=== PATIENT | male | born 1995 | race Caucasian/White ===

== ENCOUNTER 2021-03-29 19:43 | Emergency (ER) | payer OTHER ==
[~2021-03-29] VITALS: Ht 188 cm; Wt 81.6 kg
[2021-03-29 19:48] VITALS: BP 123/81
[2021-03-29 21:31] LABS: Calcium 8.5 mg/dL (8.5-10.1); Potassium 3.6 mmol/L (3.5-5.1)
[2021-03-29 21:34] LABS: BUN/Creatinine Ratio 18.7
== END 2021-03-29 20:03 | disposition home or self-care (01) ==
LOC: EDBD 19:43 → ER 19:47
DX: T67.5XXA Heat exhaustion, unspecified, initial encounter (principal); K52.9 Noninfective gastroenteritis and colitis, unspecified; X58.XXXA Exposure to other specified factors, initial encounter; Y93.89 Activity, other specified; Y92.89 Other specified places as the place of occurrence of the external cause; Y99.0 Civilian activity done for income or pay
CPT/HCPCS: 36415; 80048; 82550; 83874

== ENCOUNTER 2021-08-31 10:50 | Emergency (ER) | payer OTHER ==
[~2021-08-31] VITALS: Ht 182.9 cm; Wt 63.5 kg
[2021-08-31 11:39] VITALS: BP 120/80
== END 2021-08-31 12:34 | disposition home or self-care (01) ==
LOC: ER 10:50
DX: K52.9 Noninfective gastroenteritis and colitis, unspecified (principal)